=== PATIENT | female | born 2000 | race Caucasian/White ===

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

== ENCOUNTER 2024-09-15 07:29 | Emergency (ER) | payer BC, OTHER ==
--- NOTE | 2024-09-15 07:49 | ER ---
Nurse's Notes [facility] Name: Rodo Luna Age: 24 yrs Sex: Female : 2000 Arrival Date: 09/15/2024 Time: 07:29 Bed 5 Private MD: Diagnosis: Cellulitis Left hand Presentation: 09/15 07:40 Chief complaint: Patient states: redness and swelling to R hand that began a few days ss ago. Pt reports she was seen at urgent care and given a steroid shot, and woke up this morning with worsening of symptoms. Denies fever. Coronavirus screen: Client denies travel out of the [place] in the last 14 days. Ebola Screen: Patient denies exposure to infectious person. Patient denies travel to an Ebola-affected area in the 21 days before illness onset. Initial Sepsis Screen: Does the patient meet any 2 criteria? No. Patient's initial sepsis screen is negative. Does the patient have a suspected source of infection? No. Patient's initial sepsis screen is negative. Risk Assessment: Do you want to hurt yourself or someone else? Patient reports no desire to harm self or others. 07:40 Method Of Arrival: Ambulatory ss 07:40 Acuity: AVRIL 3 ss 08:07 Onset of symptoms was September 15, 2024. ld1 Triage Assessment: 08:06 Bite description: bite sustained to left hand by an unknown animal, animal information: ld1 vaccination(s) is unknown. General: Appears in no apparent distress. comfortable, Behavior is calm, cooperative, appropriate for age. Pain: Complains of pain in left hand Pain does not radiate. Pain currently is 8 out of 10 on a pain scale. Quality of pain is described as throbbing, Pain began suddenly, Is continuous. EENT: No signs and/or symptoms were reported regarding the EENT system. Neuro: Level of Consciousness is awake, alert, obeys commands, Oriented to person, place, time, situation, Appropriate for age. Cardiovascular: Capillary refill < 3 seconds Patient's skin is warm and dry. Respiratory: Airway is patent Respiratory effort is even, unlabored. GI: Abdomen is round non-distended. : No signs and/or symptoms were reported regarding the genitourinary system. Derm: No signs and/or symptoms reported regarding the dermatologic system. Musculoskeletal: No signs and/or symptoms reported regarding the musculoskeletal system. Historical: - Allergies: 07:42 amlodipine; ss - PMHx: 07:42 Hypertensive disorder; ss - PSHx: 07:42 None; ss - Immunization history:: Adult Immunizations up to date. - Infectious Disease History:: Denies. - Social history:: Smoking status: Patient denies any tobacco usage or history of. Screenin:[address] [facility] ED Fall Risk Assessment (Adult) History of falling in the last 3 months, ld1 including since admission No falls in past 3 months (0 pts) Confusion or Disorientation No (0 pts) Intoxicated or Sedated No (0 pts) Impaired Gait No (0 pts) Mobility Assist Device Used No (0 pt) Altered Elimination No (0 pt) Score/Fall Risk Level 0 - 2 = Low Risk Oriented to surroundings, Maintained a safe environment, Educated pt \T\ family on fall prevention, incl call for assistance when getting out of bed, Assessed \T\ reinforced patient's understanding of fall precautions, Provided non-skid footwear, Hourly rounding (assess needs \T\ fall precautionary measures) done, Used ambulatory aids as needed (educated on \T\ assisted with), Used gait belt as appropriate. Abuse screen: Denies threats or abuse. Denies injuries from another. Nutritional screening: No deficits noted. Tuberculosis screening: No symptoms or risk factors identified. Assessment: 07:45 General: Appears in no apparent distress. comfortable, Behavior is calm, cooperative, ld1 appropriate for age. Pain: Complains of pain in left hand Pain does not radiate. Pain currently is 8 out of 10 on a pain scale. Quality of pain is described as throbbing, Pain began suddenly, Is continuous. Neuro: Level of Consciousness is awake, alert, obeys commands, Oriented to person, place, time, situation, Appropriate for age. Cardiovascular: Capillary refill < 3 seconds Patient's skin is warm and dry. Respiratory: Airway is patent Respiratory effort is even, unlabored. GI: Abdomen is round non-distended. : No signs and/or symptoms were reported regarding the genitourinary system. EENT: No signs and/or symptoms were reported regarding the EENT system. Derm: Skin is intact, Skin is red, Skin temperature is warm. Musculoskeletal: No signs and/or symptoms reported regarding the musculoskeletal system. Vital Signs: 07:40 BP 145 / 93; Pulse 107; Resp 14; Temp 97.3(TE); Pulse Ox 100% on R/A; Weight 57.15 kg; Height 5 ft. 4 in. ; 07:45 BP 145 / 93; Pulse 96; Resp 18; Temp 97.3(TE); Pulse Ox 100% on R/A; ld1 07:40 Body Mass Index 21.63 (57.15 kg, 162.56 cm) ED Course: 07:34 Patient arrived in ED. ra3 07:35 Jorge Poe DO is Attending Physician. ms3 07:40 Mecca Poe, GINETTE is Primary Nurse. ld1 07:42 Triage completed. ss 07:42 Arm band placed on right wrist. ss 07:45 Patient has correct armband on for positive identification. Placed in gown. Bed in low ld1 position. Call light in reach. Side rails up X2. cardiac monitor technician on. Pulse ox on. NIBP on. Door closed. Noise minimized. Warm blanket given. 07:45 No provider procedures requiring assistance completed. ld1 07:48 Deshawn Zuluaga DO is Referral Physician. ms3 08:06 Patient did not have IV access during this emergency room visit. ld1 Administered Medications: No medications were administered Medication: 07:45 VIS not applicable for this client. ld1 Outcome: 07:48 Discharge ordered by . ms3 08:06 Discharged to home ambulatory, ld1 08:06 Condition: stable 08:06 Discharge instructions given to patient, Instructed on discharge instructions, follow up and referral plans. Demonstrated understanding of instructions, follow-up care, medications, Prescriptions given X 2, 08:08 Patient left the ED. ld1 Signatures: Sherlyn Mao, GINETTE RN Jorge Poe DO DO ms3 Mecca Poe RN RN ld1 Elvira Trujillo ra3
--- NOTE | 2024-09-15 07:49 | EDPHYS ---
Physician Documentation [facility] Name: Rodo Luna Age: 24 yrs Sex: Female : 2000 Arrival Date: 09/15/2024 Time: 07:29 Bed 5 Private MD: ED Physician Jorge Poe HPI: 09/15 08:23 This 24 yrs old Female presents to ER via Ambulatory with complaints of Insect Bite. ms3 08:23 Rodo Luna, a 24-year-old female, presents to the Emergency Department ms3 with an itchy vein that she first noticed while on her couch. After scratching it, she went to bed and upon waking, observed that the affected area had spread. She visited urgent care, received a steroid shot, and was advised to take antihistamines. This morning she noticed further spread. She reports pain when moving the affected area, rating it 3-4 out of 10. There is no history of insect bites.. Historical: - Allergies: 07:42 amlodipine; ss - PMHx: 07:42 Hypertensive disorder; ss - PSHx: 07:42 None; ss - Immunization history:: Adult Immunizations up to date. - Infectious Disease History:: Denies. - Social history:: Smoking status: Patient denies any tobacco usage or history of. ROS: 08:23 Constitutional: Negative for fever, and chills. Cardiovascular: Negative for chest ms3 pain, and palpitations. Respiratory: Negative for shortness of breath, cough, wheezing, and pleuritic chest pain, Abdomen/GI: Negative for abdominal pain, nausea, vomiting, diarrhea, and constipation, MS/Extremity: Negative for injury and deformity, 08:23 Skin: Positive for rash, Exam: 08:23 Constitutional: This is a well developed, well nourished patient who is awake, alert, ms3 and in no acute distress. Cardiovascular: Regular rate and rhythm with a normal S1 and S2. No gallops, murmurs, or rubs. Normal PMI, no JVD. No pulse deficits. Respiratory: Lungs have equal breath sounds bilaterally, clear to auscultation and percussion. No rales, rhonchi or wheezes noted. No increased work of breathing, no retractions or nasal flaring. Abdomen/GI: Soft, non-tender, with normal bowel sounds. No distension or tympany. No guarding or rebound. No evidence of tenderness throughout. 08:23 Skin: cellulitis, that is mild, on the left hand, Vital Signs: 07:40 BP 145 / 93; Pulse 107; Resp 14; Temp 97.3(TE); Pulse Ox 100% on R/A; Weight 57.15 kg; ss Height 5 ft. 4 in. ; 07:45 BP 145 / 93; Pulse 96; Resp 18; Temp 97.3(TE); Pulse Ox 100% on R/A; ld1 07:40 Body Mass Index 21.63 (57.15 kg, 162.56 cm) ss MDM: 07:48 Medical Screening Exam initiated ms3 08:23 Differential diagnosis: Cellulitis vs Urticaria vs Allergic reaction vs insect bite. ms3 Data reviewed: vital signs, nurses notes, and as a result, I will discharge patient. I considered the following discharge prescriptions or medication management in the emergency department See Rx. Counseling: I had a detailed discussion with the patient and/or guardian regarding the historical points, exam findings, and any diagnostic results supporting the discharge/admit diagnosis, the need for outpatient follow up, to return to the emergency department if symptoms worsen or persist or if there are any questions or concerns that arise at home. Special discussion: I discussed with the patient/guardian in detail that at this point there is no indication for admission to the hospital. It is understood, however, that if the symptoms persist or worsen the patient needs to return immediately for re-evaluation. ED course: Discussed physical exam findings with patient. Patient given prescription for prednisone and doxycycline. Patient to follow-up with primary care physician in 2 to 3 days. Patient understands and agrees with plan. All questions were answered. Return precautions discussed include worsening symptoms, or any other concerns.. Administered Medications: No medications were administered Disposition Summary: 09/15/24 07:48 Discharge Ordered Notes: Location: Home ms3 Condition: Stable ms3 Diagnosis - Cellulitis Left hand ms3 Followup: ms3 - With: Deshawn Zuluaga DO - When: 2 - 3 days - Reason: Re-evaluation by your physician Discharge Instructions: - Discharge Summary Sheet ms3 - Cellulitis, Adult, [id number] ms3 Forms: - Medication Reconciliation Form ms3 - Antibiotic Education ms3 - Prescription Opioid Use ms3 - Patient Portal Instructions ms3 - Leadership Thank You Letter ms3 Prescriptions: - Doxycycline Hyclate 100 mg Oral Tablet - take 1 tablet ORAL route every 12 hours; 20 tablet; Refills: 0, Product ms3 Selection Permitted - Prednisone 20 mg Oral Tablet - take 2 tablets ORAL route once daily for 5 days; 10 tablet; Refills: 0, Product ms3 Selection Permitted Signatures: Sherlyn Mao RN RN ss Jorge Poe DO DO ms3 Mecca Poe RN RN ld1
[2024-09-15 11:08] VITALS: BP 145/93; TEMP 97.3; O2SAT 100
--- OUTSIDE RECORDS SUMMARY | 2024-09-16 02:18 | XMS REPORT | Continuity of Care Document ---
Author Name Unknown Address [address] [facility] [address] [place] [address] [facility] thconnect Address [address] [facility] [address] [place] [address] Care Team Providers Care Hydraulic Engineer Name Role Phone Sujatha Macias MD Primary Care Physician Zenia Main MD Attending Clinician [phone] Unknown, Attending Attending Clinician UnavailZENIA Esparza Attending Clinician Unavailable Sujatha Macias MD Attending Clinician + [phone] SUJATHA MACIAS Attending Clinician Breanna wheeler Doctor Unassigned, [place] Attending Clinician U KELI Mario Attending Clinician Unavailable BILLY CHAN Attending Clinician BILLY Moreno Attending Clinician KELI Alaniz Attending Clinician Unavailable 2, [facility] Attending Clinician Unavailable Sujatha Macias MD Attending Clinician + [phone] AMA BLISS Attending Clinician Unavailable Zenia Main MD Attending Clinician [phone] Unknown, Attending Attending Clinician UnavailAma Salcido MD Attending Clinician [phone] MYLA ESTEVEZ Attending Clinician Unavailable GURDEEP LAWSON Attending Clinician Gurdeep Bradley MD Attending Clinician [phone] KEELY TEMPLE Attending Clinician Unavailable Carolyn Pruitt Attending Clinician Keely Espinoza Attending Clinician [phone] Visit, Adc Nurse Attending Clinician Unavailable Lab, Ang - Db Attending Clinician Unavailable Myla Estevez PA-C Attending Clinician [phone] JUSTIN BOYD Attending Clinician Unavailable Payers Payer Name Policy Type Policy Number Effective Date Expirati on Date Source MARY CROSS [id number] 2021 00:00:00 02-15 00:00:00 Problems Condition Name Condition Details Condition Category Status Onset Date Resolution Date Last Treatment Date Treating Clinician Comments Source Abnormal uterine bleeding Abnormal uterine bleeding Disease Active 12-03 00:00: 00 [facility] No known active problems No known active problems Disease [facility] Allergies, Adverse Reactions, Alerts Allergy Name Allergy Type Status Severity Reaction(s) Onset Date Inactive Date Treating Clinician Comments Source Amlodipi ne Propensi ty to adverse reaction s Active Swelling 08-25 00:00: 00 [facility] AMLODIPI NE DRUG INGREDI Active Swelling 08-25 00:00: 00 [facility] Social History Social Habit Start Date Stop Date Quantity Comments Source Gender identity [facility] Sexual orientation U [facility] History SDOH Alcohol Frequency [facility] History SDOH Alcohol Std Drinks [facility] History SDOH Alcohol Binge [facility] Alcoholic beverage intake 2024-09-14 00:00:00 2024-09-14 00:00:00 Current drinker of alcohol (finding) [facility] History of Social function 2024-06-02 00:00:00 2024-06-02 00:00:00 [facility] Alcohol intake 2023-12-04 00:00:00 2023-12-04 00:00:00 Current drinker of alcohol (finding) [facility] Exposure to SARS-CoV-2 (event) 2022-11-19 00:00:00 2022-11-29 07:50:00 Not sure [facility] Tobacco use and exposure 2022-11-29 00:00:00 2022-11-29 00:00:00 Smokeless tobacco non-user [facility] Alcohol Comment 2018-05-12 00:00:00 2018-05-12 00:00:00 socially [facility] Sex assigned at 2000 00:00:00 2000 00:00:00 [facility] Smoking Status Start Date Stop Date Source Never smoked tobacco [facility] Medications Ordered Medication Name Filled Medication Name Start Date Stop Date Current Medication? Ordering Clinician Indication Dosage Frequency Signature (SIG) Comments Components Source methylPREDN ISolone acetate (DEPO-MEDRO L) injection 40 mg 09-14 20:00: 00 09-14 19:27 :00 No [id number] 40mg 40 mg, Intramuscu lar, ONCE, 1 dose, On Sat09/14/24 at 1400, Routine [facility] triamterene -hydrochlor othiazid 37.5-25 mg tablet 2023-08 00:00: 00 Yes [id number] 1{tbl} Take 1 tablet by mouth in the morning. [facility] triamterene -hydrochlor othiazid 37.5-25 mg tablet 03-05 00:00: 00 06-02 00:00 :00 No [id number] 1{tbl} Take 1 tablet by mouth in the morning. [facility] bromphenira mine-pseudo ephedrine-D M (BROMFED DM) 2-30-10 mg/5 mL syrup 02-26 00:00: 00 03-05 00:00 :00 No [id number] 5mL Take 5 mL by mouth 4 (four) times daily as needed for Congestion /Allergies . [facility] predniSONE 20 mg tablet 02-26 00:00: 00 03-04 04:59 :00 No [id number] 40mg Take 2 tablets by mouth in the morning for 5 days. [facility] cefUROXime 250 mg tablet 2021-08 00:00: 00 11-29 00:00 :00 No [id number] 250mg Take 1 tablet by mouth in the morning and 1 tablet in the evening. [facility] triamterene -hydrochlor othiazide 37.5-25 mg per capsule 03-19 00:00: 00 11-29 00:00 :00 No [id number] 1{capsu le} Take 1 capsule by mouth every morning. [facility] triamterene -hydrochlor othiazide 37.5-25 mg per capsule - 00:00: 00 03-19 00:00 :00 No [id number] 1{capsu le} Take 1 capsule by mouth every morning. [facility] LOESTRIN FE 1 mg-20 mcg (21)/75 mg (7) tablet 04-19 00:00: 00 11-29 00:00 :00 No [id number] 1{tbl} Take 1 tablet by mouth daily. [facility] Vital Signs Vital Name Observation Time Observation Value Comments S ource Systolic blood pressure 2024-09-14 19:08:00 139 mm[Hg] [facility] Diastolic blood pressure 2024-09-14 19:08:00 92 mm[Hg] [facility] Heart rate 2024-09-14 19:00:00 87 /min [facility] Body temperature 2024-09-14 19:00:00 36.56 Mera [facility] Respiratory rate 2024-09-14 19:00:00 21 /min [facility] Body height 2024-09-14 19:00:00 162.6 cm [facility] Body weight 2024-09-14 19:00:00 57.153 kg [facility] BMI 2024-09-14 19:00:00 21.63 kg/m2 [facility] Oxygen saturation in Arterial blood by Pulse oximetry 2024-09-14 19:00:00 98 /min [facility] Systolic blood pressure 2024-06-02 13:34:00 134 mm[Hg] [facility] Diastolic blood pressure 2024-06-02 13:34:00 86 mm[Hg] [facility] Heart rate 2024-06-02 13:33:00 71 /min [facility] Body temperature 2024-06-02 13:33:00 36.89 Mera [facility] Body height 2024-06-02 13:33:00 162.6 cm [facility] Body weight 2024-06-02 13:33:00 59.421 kg [facility] BMI 2024-06-02 13:33:00 22.49 kg/m2 [facility] Systolic blood pressure 2023-12-04 15:38:00 129 mm[Hg] [facility] Diastolic blood pressure 2023-12-04 15:38:00 70 mm[Hg] [facility] Heart rate 2023-12-04 15:36:00 76 /min Unive [facility] Body temperature 2023-12-04 15:36:00 37.22 Mera [facility] Body height 2023-12-04 15:36:00 162.6 cm Univ [facility] Body weight 2023-12-04 15:36:00 58.423 kg Univ [facility] BMI 2023-12-04 15:36:00 22.11 kg/m2 Univ [facility] Systolic blood pressure 2023-10-09 17:25:00 137 mm[Hg] [place] [facility] Diastolic blood pressure 2023-10-09 17:25:00 89 mm[Hg] [facility] Heart rate 2023-10-09 17:25:00 79 /min [facility] Body height 2023-10-09 17:25:00 162.6 cm Univ [facility] Body weight 2023-10-09 17:25:00 60.782 kg Univ [facility] BMI 2023-10-09 17:25:00 23.00 kg/m2 Univ [facility] Systolic blood pressure 2023-04-08 20:36:00 133 mm[Hg] [facility] Diastolic blood pressure 2023-04-08 20:36:00 79 mm[Hg] [facility] Heart rate 2023-04-08 20:36:00 73 /min Unive [facility] Body height 2023-04-08 20:36:00 162.6 cm [facility] Body weight 2023-04-08 20:36:00 64.411 kg [facility] BMI 2023-04-08 20:36:00 24.37 kg/m2 [facility] Systolic blood pressure 2023-03-05 19:14:00 174 mm[Hg] [facility] Diastolic blood pressure 2023-03-05 19:14:00 104 mm[Hg] [facility] Heart rate 2023-03-05 19:13:00 76 /min Unive [facility] Body temperature 2023-03-05 19:13:00 36.89 Mera [facility] Body height 2023-03-05 19:13:00 160 cm [facility] Body weight 2023-03-05 19:13:00 65.318 kg [facility] BMI 2023-03-05 19:13:00 25.51 kg/m2 [facility] Systolic blood pressure 2023-02-26 14:10:00 155 mm[Hg] [facility] Diastolic blood pressure 2023-02-26 14:10:00 104 mm[Hg] [facility] Heart rate 2023-02-26 14:09:00 81 /min [facility] Body temperature 2023-02-26 14:09:00 37.28 Mera [facility] Respiratory rate 2023-02-26 14:09:00 18 /min [facility] Body weight 2023-02-26 14:09:00 68.04 kg [facility] BMI 2023-02-26 14:09:00 25.75 kg/m2 [facility] Oxygen saturation in Arterial blood by Pulse oximetry 2023-02-26 14:09:00 100 /min [facility] Systolic blood pressure 2022-11-29 13:22:00 124 mm[Hg] [facility] Diastolic blood pressure 2022-11-29 13:22:00 85 mm[Hg] [facility] Heart rate 2022-11-29 13:13:00 69 /min Unive [facility] Body temperature 2022-11-29 13:13:00 36.67 Mera [facility] Body weight 2022-11-29 13:13:00 62.143 kg [facility] BMI 2022-11-29 13:13:00 23.52 kg/m2 [facility] Systolic blood pressure 2022-04-06 15:58:00 138 mm[Hg] [facility] Diastolic blood pressure 2022-04-06 15:58:00 97 mm[Hg] [facility] Heart rate 2022-04-06 15:58:00 64 /min Unive [facility] Body temperature 2022-04-06 15:58:00 36.89 Mera [facility] Body height 2022-04-06 15:58:00 162.6 cm [facility] Body weight 2022-04-06 15:58:00 58.06 kg [facility] BMI 2022-04-06 15:58:00 21.97 kg/m2 [facility] Procedures Procedure Date / Time Performed Performing Clinicia n Source ASSIGNMENT OF BENEFITS 2022-11-29 12:51:27 Docto r Unassigned, [place] [facility] Encounters Start Date/Time End Date/Time Encounter Type Admission Type Attending [facility] Care Facility Care Department Encounter ID Source 2024-09-14 12:40:00 2024-09-14 13:00:00 Urgent Care Zenia Main Unknown, Attending [facility]?RENNY [facility] 1.2.840.114 350.1.13.10 4.2.7.2.686 [id number] [facility] 2024-09-14 12:40:00 2024-09-14 12:40:00 Outpatient R ZENIA MAIN [facility] [id number] [facility] 2024-06-02 08:30:00 2024-06-02 09:00:00 Office Visit Sujatha Macias [facility] 1.2.840.114 350.1.13.10 4.2.7.2.686 [id number] [facility] 2024-06-02 08:30:00 2024-06-02 08:48:27 Outpatient SUJATHA CARDOZA [facility] [id number] [facility] 2024-04-08 09:00:00 2024-04-08 09:00:00 Outpatient Avi MACIAS SUJATHA [facility] [id number] [facility] 2023-12-06 00:00:00 2024-01-11 18:10:23 Patient Secure Msg Doctor Unassigned, [place] [facility] 1..840.114 350.1.13.10 4.2.7.2.686 [id number] [facility] 2023-12-27 13:30:00 2023-12-27 13:30:00 Outpatient R SINGH-JESE S, BILLY SINGH-JESE S, BILLY [facility] [id number] [facility] 2023-12-06 08:30:00 2023-12-06 08:30:00 Outpatient R SINGH-JESE S, BILLY SINGH-JESE S, BILLY [facility] [id number] [facility] 2023-12-04 11:15:00 2023-12-04 11:30:00 Clip On Sunglasses Assembler Visit 2, Adc Lab Keli Pearson [facility] BUILD[facility] 1..840.114 350.1.13.10 4.2.7.2.686 [id number] [facility] 2023-12-04 10:30:00 2023-12-04 10:59:22 Outpatient R KELI PEARSON [facility] [id number] [facility] 2023-12-04 10:30:00 2023-12-04 10:59:22 Office Visit Keli Pearson [facility] 1.840.114 350.1.13.10 4.2.7.2.686 [id number] [facility] 2023-10-09 11:30:00 2023-10-09 11:38:53 Outpatient R SUJATHA MACIAS [facility] [id number] [facility] 2023-10-09 11:30:00 2023-10-09 11:38:53 [facility] 1..840.114 350.1.13.10 4.2.7.2.686 [id number] [facility] 2023-04-08 15:45:00 2023-04-08 16:00:00 Office Visit Sujatha Macias [facility]?RENNY [facility] MED[facility] OFF[facility] BUILDING 1..840.114 350.1.13.10 4.2.7.2.686 [id number] [facility] 2023-04-08 15:45:00 2023-04-08 15:45:00 Outpatient R SUJATHA MACIAS [facility] [id number] [facility] 2023-03-20 10:00:00 2023-03-20 10:00:00 Outpatient AMA FRANCO [facility] [id number] [facility] 2023-03-05 14:15:00 2023-03-05 14:30:00 [facility] 1..840.114 350.1.13.10 4.2.7.2.686 [id number] [facility] 2023-03-05 14:15:00 2023-03-05 14:15:00 Outpatient SUJATHA CARDOZA [facility] [id number] [facility] 2023-02-26 09:20:00 2023-02-26 09:32:06 Outpatient ZENIA ASHLEY [facility] [id number] [facility] 2023-02-26 09:20:00 2023-02-26 09:32:06 Urgent Care Zenia Main Unknown, Attending [facility] 1..840.114 350.1.13.10 4.2.7.2.686 [id number] [facility] 2022-11-29 08:00:00 2022-11-29 08:45:01 Outpatient R KELI PEARSON [facility] [id number] [facility] 2022-11-29 08:00:00 2022-11-29 08:45:01 Office Visit Keli Pearson [facility] BU[facility] 1..840.114 350.1.13.10 4.2.7.2.686 [id number] [facility] 2022-11-29 00:00:00 2022-11-29 00:00:00 Orders Only Doctor Unassigned, [place] [facility] 1.840.114 350.1.13.10 4.2.7.2.686 [id number] [facility] 2022-10-01 00:00:00 2022-10-01 00:00:00 Patient Secure Msg Abhay Blissvasquez [facility] NAL BUILDING 1.840.114 350.1.13.10 4.2.7.2.686 [id number] [facility] 2022-07-16 00:00:00 2022-07-16 00:00:00 Patient Secure g Sujatha Macias [facility]?LINNETTEAlicia [facility] MED[facility] OFF[facility] BUILDING 1..840.114 350.1.13.10 4.2.7.2.686 [id number] [facility] 2022-04-06 11:15:00 2022-04-06 11:30:00 Office Visit Sujatha Macias [facility]?RENNY [facility] 1.2.840.114 350.1.13.10 4.2.7.2.686 [id number] [facility] 2022-04-06 11:15:00 2022-04-06 11:15:00 Outpatient R SUJATHA MACIAS [facility] [id number] [facility] 2022-03-19 14:20:00 2022-03-19 14:41:10 [facility] [id number] [facility] 2022-03-19 14:20:00 2022-03-19 14:41:10 [facility] 1.2.840.114 350.1.13.10 4.2.7.2.686 [id number] [facility] 2022-02-16 09:20:00 2022-02-16 09:20:00 [facility] [id number] [facility] 2022-02-16 09:20:00 2022-02-16 09:20:00 [facility] [id number] [facility] 2022-01-03 14:00:00 2022-01-03 14:00:00 Outpatient R MYLA ESTEVEZ [facility] [id number] [facility] 2022-01-03 14:00:00 2022-01-03 14:00:00 Outpatient R MYLA ESTEVEZ [facility] [id number] [facility] 2021-12-26 09:00:00 2021-12-26 09:00:00 Outpatient GURDEEP GREGORY [facility] [id number] [facility] 2021-12-25 00:00:00 2021-12-25 00:00:00 Patient Secure MsGurdeep Saini [facility] 1.2.84.114 350.1.13.10 4.2.7.2.686 [id number] [facility] 2021-12-21 14:20:00 2021-12-21 14:43:39 Outpatient R MAVERICK KEELY [facility] [id number] [facility] 2021-12-21 14:20:00 2021-12-21 14:43:39 [facility] 1.84.114 350.1.13.10 4.2.7.2.686 [id number] [facility] 2021-12-21 00:00:00 2021-12-21 00:00:00 Telephone Maria Luisa [facility]Alicia [facility] MED[facility] OFF[facility] BUILD[facility] 1.84.114 350.1.13.10 4.2.7.2.686 [id number] [facility] 2021-12-06 16:00:00 2021-12-06 16:00:04 [facility] [id number] [facility] 2021-12-06 16:00:00 2021-12-06 16:00:04 Nurse Visit Visit, [facility] Nurse Ruthy [facility] 1.840.114 350.1.13.10 4.2.7.2.686 [id number] [facility] 2021-12-06 16:00:00 2021-12-06 16:00:00 Outpatient R [facility] [id number] [facility] 2021-11-26 00:00:00 2021-11-26 00:00:00 Patient Secure Msg Ruthy [facility] BUILDING 1.840.114 350.1.13.10 4.2.7.2.686 [id number] [facility] 2021-11-24 15:45:00 2021-11-24 16:00:00 Clip On Sunglasses Assembler Visit 2, [facility] 1.2.840.114 350.1.13.10 4.2.7.2.686 [id number] [facility] 2021-11-24 15:00:00 2021-11-24 15:22:44 [facility] [id number] [facility] 2021-11-24 15:00:00 2021-11-24 15:22:44 [facility] 1.2.840.114 350.1.13.10 4.2.7.2.686 [id number] [facility] 2021-11-24 00:00:00 2021-11-24 00:00:00 Orders Only Doctor Unassigned, [place] [facility] 1..840.114 350.1.13.10 4.2.7.2.686 [id number] [facility] 2021-11-08 09:40:00 2021-11-08 09:40:00 [facility] [id number] [facility] 2021-11-02 00:00:00 2021-11-02 00:00:00 Refill Ruthy [facility] BUILDING 1..840.114 350.1.13.10 4.2.7.2.686 [id number] [facility] 2021-10-18 09:00:00 2021-10-18 09:00:00 [facility] [id number] [facility] 2021-09-07 00:00:00 2021-09-07 00:00:00 Patient Secure [facility] 1.2.840.114 350.1.13.10 4.2.7.2.686 [id number] [facility] 2021-09-06 08:45:26 2021-09-06 23:59:00 Hospital [facility] 1.2.840.114 350.1.13.10 4.2.7.2.686 [id number] [facility] 2021-09-06 07:59:01 2021-09-06 08:44:00 [facility] [id number] [facility] 2021-09-06 07:59:01 2021-09-06 08:44:00 Hospital Encounter Ruthy, [facility] BUILDING 1.2.840.114 350.1.13.10 4.2.7.2.686 [id number] [facility] 2021-09-06 08:00:00 2021-09-06 08:00:00 [facility] [id number] [facility] 2021-09-04 08:00:00 2021-09-04 08:00:00 [facility] [id number] [facility] 2021-08-29 00:00:00 2021-08-29 00:00:00 Refill Ruthy [facility] BUILDING 1.2.840.114 350.1.13.10 4.2.7.2.686 [id number] [facility] 2021-08-25 00:00:00 2021-08-25 00:00:00 Patient Secure Msg Ruthy [facility] BUILDING 1.2.840.114 350.1.13.10 4.2.7.2.686 [id number] [facility] 2021-08-25 00:00:00 2021-08-25 00:00:00 Telephone Ruthy [facility] BUILDING 1.2.840.114 350.1.13.10 4.2.7.2.686 [id number] [facility] 2021-08-25 00:00:00 2021-08-25 00:00:00 Patient Secure Msg Ruthy [facility] BUILDING 1.2.840.114 350.1.13.10 4.2.7.2.686 [id number] [facility] 2021-08-15 09:00:00 2021-08-15 09:21:47 Outpatient R RUTHY [facility] [id number] [facility] 2021-08-15 09:00:00 2021-08-15 09:21:47 Outpatient R RUTHY [facility] [id number] [facility] 2021-08-15 09:00:00 2021-08-15 09:21:47 Office Visit Ruthy [facility] BUILDING 1.2.840.114 350.1.13.10 4.2.7.2.686 [id number] [facility] 2021-08-03 09:30:00 2021-08-03 09:45:00 Clip On Sunglasses Assembler Visit Lab[facility] 1.2.840.114 350.1.13.10 4.2.7.2.686 [id number] [facility] 2021-08-03 09:30:00 2021-08-03 09:30:00 Outpatient SUJATHA CARDOZA [facility] [id number] [facility] 2021-08-03 09:00:00 2021-08-03 09:30:00 Office Visit Sujatha Macias [facility]?RENNY [facility] 1..840.114 350.1.13.10 4.2.7.2.686 [id number] [facility] 2021-08-03 09:00:00 2021-08-03 09:00:00 Outpatient R SUJATHA MACIAS [facility] [id number] [facility] 2021-03-14 00:00:00 2021-03-14 00:00:00 Patient Secure Msg Myla Estevez [facility] 1..840.114 350.1.13.10 4.2.7.2.686 [id number] [facility] 2020-12-07 09:00:00 2020-12-07 09:00:00 Outpatient R [facility]B [facility] [id number] [facility] 2020-11-28 14:40:00 2020-11-28 14:40:00 Outpatient R JUSTIN BOYD [facility] [id number] [facility] 2020-07-30 10:40:00 2020-07-30 10:40:00 Outpatient R KEELY TEMPLE [facility] [id number] [facility] 2020-07-25 08:15:00 2020-07-25 08:15:00 Outpatient R SUJATHA MACIAS [facility] [id number] [facility] 2020-04-14 00:00:00 2020-04-14 00:00:00 Patient Secure Msg Doctor Unassigned, [place] [facility] 1..840.114 350.1.13.10 4.2.7.2.686 [id number] [facility]
== END 2024-09-15 08:08 | disposition home or self-care (01) ==
LOC: ER 07:29
DX: L03.114 Cellulitis of left upper limb (principal); I10 Essential (primary) hypertension; Z88.8 Allergy status to other drugs, medicaments and biological substances